=== PATIENT | female | born 1975 | race Hispanic/Latino ===

== ENCOUNTER 2019-03-03 17:19 | Emergency (ER) | payer SELFPAY ==
[2019-03-03 17:49] LABS: Bilirubin Negative (Negative); Blood, Urine Trace (Negative); Glucose, Urine (Dipstick) Negative (Negative); Leukocyte Negative (Negative); Nitrite Negative (Negative); Protein, Urine (Dipstick) Negative (Neg-Trace); Urobilinogen 0.2 mg/dL (Less than 2)
[2019-03-03 17:52] LABS: Pregnancy Test - Urine (BHCG) Negative (Negative); Pregu Control Background? CLEAR/WHITE (CLR/WHITE); Pregu Control Bar Appear? YES (CONTROL BAR); Specific Gravity 1.025 (1.002-1.036)
[2019-03-03 18:01] LABS: Bacteria/HPF 2+ HPF (None Seen); Clarity Hazy (Clear); RBC/HPF 0-3 HPF (0-3); Squamous Epithelial 21-50 HPF (0-3); WBC/HPF None Seen HPF (0-3)
[2019-03-03 18:04] LABS: Hemoglobin 9.6 g/dL (12.0-16.0); Mean Corpuscular HGB CONC 30.8 g/dL (32.0-36.0); Mean Corpuscular Hemoglobin 23.2 pg (27.0-31.0); Mean Corpuscular Volume 75.3 fL (78.0-98.0); Mean Platelet Volume 8.6 fL (7.4-10.4); Platelet Count 288 thou/uL (130-400); Red Blood Cell (RBC) Count 4.13 mill/uL (4.20-5.40); White Blood Cell (WBC) Count 7.7 thou/uL (4.8-10.8)
[2019-03-03 18:19] LABS: ALT (SGPT) 19 U/L (8-55); AST (SGOT) 21 U/L (5-34); Albumin 3.8 g/dL (3.5-5.0); Alkaline Phosphatase 76 U/L (40-150); Anion Gap 13 mmol/L (10-20); BUN (Urea Nitrogen) 9 mg/dL (7.0-18.7); Bilirubin, Total 0.2 mg/dL (0.2-1.2); Calc. Creatinine Clearance 0 mL/min (70-130); Calcium 8.8 mg/dL (7.8-10.44); Carbon Dioxide 23 mmol/L (22-29); Chloride 106 mmol/L (98-107); Estimated GFR-MDRD Greater than 90; Globulin 3.3 g/dL (2.4-3.5); Glucose 100 mg/dL (70-105); Lipase 58 U/L (8-78); Potassium 3.9 mmol/L (3.5-5.1); Protein, Total 7.1 g/dL (6.0-8.3); Sodium 138 mmol/L (136-145)
[2019-03-03] MEDS ORDERED: Morphine 4 MG/ML VIAL ONE (18:28)
[2019-03-03] MEDS ORDERED: Ondansetron PF 4 MG/2 ML Vial ONE (18:28)
[2019-03-03 18:31] LABS: Anisocytosis SLIGHT = 6-15 cells (100X) (0-5/hpf); Elliptocytes SLIGHT = 2-5 cells (100X) (0-1/hpf); Eosinophils 3 % (0-10); Hypochromia SLIGHT = 6-15 cells (100X) (0-5/hpf); Lymphocytes 27 % (21-51); MDiff Complete? YES; Microcytosis SLIGHT = 6-15 cells (100X) (0-5/hpf); Monocytes 5 % (0-10); Neutrophil 65 % (42-75); Ovalocytes SLIGHT = 2-5 cells (100X) (0-1/hpf); Platelet Morphology Comment Appears Adequate; Polychromasia SLIGHT = 2-3 cells (100X) (0-2/hpf)
--- NOTE | 2019-03-03 18:36 | CT ---
CT ABDOMEN WITH CONTRAST CT PELVIS WITH CONTRAST: DATE: 03/03/2019 HISTORY: 43-year-old female with right lower quadrant abdominal pain. TECHNIQUE: IV injection of iodinated contrast media: Administered Oral contrast media:Not administered FINDINGS: Liver: No focal solid mass. Spleen: No splenomegaly.. Pancreas: No mass or surrounding fat stranding.. Adrenals: No mass.. Kidneys: No hydronephrosis or enhancement abnormalities.. Ureters: No dilation. Bladder: No pathology identified. Abdominal aorta: No aneurysm. Small bowel: No dilation. Colon: No adjacent fat stranding. Appendix: No dilation or adjacent fat stranding.. Free air: None. Free fluid: Very small amount in the cul-de-sac. Uterus: Diffusely enlarged. Prominent central low attenuation within the uterus, which has the appearance of fluid, perhaps hemor rhagic (32 Hounsfield units) within the endometrial cavity. Prominent left ovary at left pelvic inlet containing 2 cm ovarian cyst. Right ovary is located more p osteriorly.. IMPRESSION: 1. Normal appendix. 2. Enlarged uterus with central low attenuation. Recommend further evaluation with pelvic and transva ginal ultrasound.
--- NOTE | 2019-03-03 20:55 | ULT ---
ULTRASOUND PELVIC ULTRASOUND TRANSVAGINAL DOPPLER DUPLEX: DATE: 03/03/2019 HISTORY: 43-year-old female with pelvic pain and abnormal CT. TECHNIQUE: Transabdominal transducer and endovaginal transducer used to visualize intrapelvic contents with daniels scale, color-flow, and spectral analysis. FINDINGS: Uterus measures 13 x 6.5 x 7 cm. At the uterine fundus, the endometrial stripe is approximately 1.8 cm (18 mm) in AP thickness, and cuevas s heterogeneous echogenicity, with irregular echogenic components intermixed with intermediate echogenicity components. Tiny amount of free fluid in the cul-de-sac. Right ovary: 2.7 x 3.7 x 2.0 cm. Left ovary: 4.3 x 2.7 x 3.7 cm. Blood flow demonstrated in both ovaries by Doppler. Small, irregularly-shaped follicles in both ovaries. None are greater than 2 cm. There is an approximately 1.5 x 1.3 x 1.4 cm heterogeneously hyperechoic lesion in the left ovary wit h irregular margins. Upon review of the CT, this corresponds to a fatty lesion within the ovary, diagnostic of dermoid. IMPRESSION: 1) abnormal appearance of the endometrium at the uterine fundus. Possibilities include blood clots, e ndometritis, and endometrial carcinoma. 2) small dermoid in the left ovary.
== END 2019-03-03 19:57 | disposition home or self-care (01) ==
LOC: SCSER 17:19
DX: N85.8 Other specified noninflammatory disorders of uterus (principal); F41.9 Anxiety disorder, unspecified; F32.9 Major depressive disorder, single episode, unspecified; Z79.899 Other long term (current) drug therapy; R11.0 Nausea
CPT/HCPCS: 74177; 76856; 80053; 81003; 81015; 81025; 83690; 85025; 96361; 96374; 96375; J2270; J2405